=== PATIENT | female | born 1985 | race African-American/Black ===

== ENCOUNTER 2016-09-29 03:25 | Emergency (ER) | payer OTHER ==
[~2016-09-29] VITALS: Ht 160 cm; Wt 92.2 kg
[~2016-09-29 03:25] MED LIST: ALBUTEROL SULF8.5 GM IH; FLUTICASONE PRO16 GM BOTH NARES; LEVAQUIN750 MG PO; MOTION SICKNESS25 M4 PO; NO HOME MEDICATIONS; NO HOME MEDS; NORCO 5/3251 TABLET PO; PHENERGAN25 MG PR; PREDNISONE50 MG PO; PROMETHAZINE HC25 M1 PO; PROVENTIL HFA6.7 GM IH; ROBITUSSIN AC,T10 ML PO; TRAMADOL HCL50 MG PO; TYLENOL REGULA325 MG PO; ULTRACET1 TABLET PO; ULTRAM50 MG PO; VENTOLIN HFA18 GM IH; ZOFRAN4 MG PO
[2016-09-29] MEDS ORDERED: ULTRAM50 MG PO (05:45)
[2016-09-29 06:05] VITALS: BP 114/84
== END 2016-09-29 06:05 | disposition home or self-care (01) ==
LOC: EME 03:25
DX: M79.601 Pain in right arm (principal); M79.89 Other specified soft tissue disorders; I10 Essential (primary) hypertension; Z91.14 Patient's other noncompliance with medication regimen; F17.200 Nicotine dependence, unspecified, uncomplicated; Z88.8 Allergy status to other drugs, medicaments and biological substances
CPT/HCPCS: 93971; 99281; 99284